=== PATIENT | female | born 1950 | race Caucasian/White ===

== ENCOUNTER 2017-05-20 10:13 | Emergency (ER) | payer MEDICARE, BC ==
[~2017-05-20] VITALS: Ht 154.9 cm; Wt 46.7 kg
--- NOTE | 2017-05-20 10:49 | NUR ---
PT TO ED ROOM 01. PAIN, SWELLING, AND ERYTHEMA TO R FA X 3 DAYS. A/A/O. AMBULATORY WITH STEADY GAIT. SIDE RAIS LUP. HOB ELEVATED. SEEN AND EVALUATED BY ED PROVIDER.
[2017-05-20] MEDS ORDERED: CEPHALEXIN MONOHYDRATE 500 MG CAPSULE PO ONE ×2 (10:58→11:00)
[2017-05-20] MEDS ORDERED: SULFAMETH/TRIMETH 800/160 MG 1 UDTAB TABLET PO ONE ×2 (10:58→11:00)
--- NOTE | 2017-05-20 11:28 | NUR ---
Note vidhishaista in EDM - 05/20/17 at 1128 by [facility] Patient discharged to home in stable condition. Written and verbal after care instructions given. Patient verbalizes understanding of instruction.IV removed. Catheter intact and site benign. Pressure and 4x4 applied to site. No bleeding noted. ambulatory with a steady gait.
[2017-05-20 11:29] VITALS: BP 116/74
--- NOTE | 2017-05-20 11:30 | NUR ---
Patient discharged to home in stable condition. Written and verbal after care instructions given. Patient verbalizes understanding of instruction.
== END 2017-05-20 11:30 | disposition home or self-care (01) ==
LOC: ER 10:19
DX: L03.113 Cellulitis of right upper limb (principal); F32.9 Major depressive disorder, single episode, unspecified; Z88.0 Allergy status to penicillin; Z88.1 Allergy status to other antibiotic agents
CPT/HCPCS: 99283; A4606; Z7610